=== PATIENT | female | born 1960 | race Caucasian/White ===

== ENCOUNTER → 2017-10-22 10:49 | Outpatient (CLI) | payer OTHER, SELFPAY ==
[2017-10-22 11:51] LABS: Add Manual Diff / Slide Review NO; Basophils Percent Auto 0.8 % (0-2); Eosinophils Percent Auto 0.6 % (2-4); Hematocrit 43.4 % (36-46); Hemoglobin 14.9 g/dL (12.0-16.0); Lymphocytes Percent Auto 24.1 % (25-40); Mean Corpuscular HGB Conc 34.2 % (30-36); Mean Corpuscular Hemoglobin 32.4 PG (26-34); Mean Corpuscular Volume 94.6 fL (80-100); Monocytes Percent Auto 7.2 % (3-14); Neutrophils Absolute Auto 3300 /uL (3000-5900); Neutrophils Percent Auto 67.3 % (50-75); Platelet Count 246 X10^3/uL (150-400); Red Blood Cell Count 4.59 X10^6/uL (4.0-5.2); Red Cell Distribution Width 13.2 % (11.6-14.8); White Blood Cell Count 4.9 X10^3/uL (4.5-11.0)
[2017-10-22 12:00] LABS: Hemoglobin A1C% w Est Avg Glu 5.2 % (4.0-6.0)
[2017-10-22 12:14] LABS: Blood Urea Nitrogen 9 mg/dL (7-17); Calcium 9.2 mg/dL (8.4-10.2); Carbon Dioxide 31 mmol/L (22-32); Chloride 100 mmol/L (98-107); Estimated Glomerular Filt Rate > 60.0 mL/min (>60); Glucose 102 mg/dL (70-100); HEMOLYSIS 83 (0-50); Sodium 138 mmol/L (137-145)
[2017-10-22 12:16] LABS: Potassium 5.2 mmol/L (3.4-5.1)
[2017-10-22 12:49] LABS: TSH w/ Reflex to FT4 0.65 uIU/mL (0.47-4.68)
[2017-10-23 10:12] LABS: Free T3, Triiodothyronine Free 3.22 pg/mL (2.77-5.27)
[2017-10-23 10:26] LABS: TSH w/ Reflex to FT4 0.69 uIU/mL (0.47-4.68)
== END ==
PROVIDERS: PCP Family Medicine; Visit Provider Family Medicine
DX: I10 Essential (primary) hypertension (principal); R68.89 Other general symptoms and signs; R63.4 Abnormal weight loss
CPT/HCPCS: 36415; 80048; 83036; 84443; 84481; 85025

== ENCOUNTER → 2017-11-23 11:28 | Outpatient (CLI) | payer OTHER, SELFPAY ==
[2017-11-23 12:52] LABS: BUN Creatinine Ratio 16.7 (6-22); Blood Urea Nitrogen 10 mg/dL (7-17); Carbon Dioxide 34 mmol/L (22-32); Chloride 102 mmol/L (98-107); Estimated Glomerular Filt Rate > 60.0 mL/min (>60); Glucose 92 mg/dL (70-100); HEMOLYSIS < 15 (0-50); Potassium 3.5 mmol/L (3.4-5.1); Sodium 144 mmol/L (137-145)
== END ==
PROVIDERS: PCP Family Medicine; Visit Provider Family Medicine
DX: E87.5 Hyperkalemia (principal)
CPT/HCPCS: 36415; 80048

== ENCOUNTER → 2018-02-15 14:04 | Outpatient (CLI) | payer OTHER, SELFPAY | PROVIDERS: PCP Family Medicine; Visit Provider Family Medicine | DX: R31.9 Hematuria, unspecified (principal) | CPT/HCPCS: 87077; 87086 ==

== ENCOUNTER → 2018-02-19 08:19 | Outpatient (CLI) | payer OTHER, SELFPAY ==
--- NOTE | 2018-02-19 09:05 | DI.CT.S_ITS ---
PROCEDURE: CT ABDOMEN PELVIS W CON INDICATIONS: UNEXPLAINED WIEGHT LOSS AND ABD DISCOMFORT TECHNIQUE: After the administration of intravenous contrast, 5 mm thick sections acquired from the diaphragm to the symphysis. 5 mm coronal and sagittal reformats were acquired. For radiation dose reduction, the following was used: automated exposure control, adjustment of mA and/or kV according to patient size. COMPARISON: None. FINDINGS: Contrast Extravasation: Please note that the patient experienced a small contrast extravasation at her injection site in the right antecubital fossa extending toward the right forearm. Intravenous contrast was adequately visualized on the CT of the abdomen and pelvis, suggesting that the volume of extravasated contrast was small in volume. Patient was subsequently evaluated by Dr. Khan in person immediately after the CT exam was completed. The patient denied any right upper extremity pain, and specifically denied any pain in the region of the suspected extravasation. On physical exam, the area of extravasation within the proximal right forearm felt minimally firm to touch with no abnormal coolness or warmth in the region. A strong right radial pulse with heart rate near 70 beats per minute was identified. 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 The patient was subsequently observed for approximately one hour and did not develop any new symptoms in that time. The patient was allowed to leave and was instructed to proceed to the nearest emergency department should she developed any new symptoms or pain in the right upper extremity. Dr. Khan contacted the patient by telephone at approximately 3:00 PM on 02/19/18 to check on the patient, and the patient stated that she continues to have no pain in the right upper extremity and no motor, nerve, or sensory symptoms in the right upper extremity. Patient was again reminded to proceed to the nearest emergency department should she develop new right upper extremity pain or new symptomatology. Image quality: Excellent. ABDOMEN: Lung bases: Lung bases are clear. Heart size is normal. Solid organs: There is a 2.0 cm simple hepatic cyst in the left hepatic lobe. Liver is otherwise normal in size and enhancement. Gallbladder is unremarkable. Biliary system is non dilated. Pancreas enhances normally. Spleen is normal in size and enhancement. No adrenal nodules. There are multiple subcentimeter hypointense foci within the kidneys bilaterally which are too small to fully characterize on this exam but likely represent renal cysts. There is a 1.5 cm exophytic simple renal cyst arising from the anterior left kidney with attenuation characteristics consistent with simple fluid (Hounsfield units measure at 8 HU). Kidneys demonstrate otherwise normal size and enhancement, without hydronephrosis. Peritoneum and bowel: Bowel loops demonstrate normal wall thickness and caliber. No free fluid or air. Normal appendix. Nodes and vessels: No retroperitoneal or mesenteric adenopathy by size criteria. Aorta and inferior vena cava are normal in size. Miscellaneous: No ventral hernias. PELVIS: Genitourinary: Bladder wall thickness is normal. Miscellaneous: No inguinal hernias or adenopathy. Uterus is present. There is prominence of the bilateral pelvic vasculature surrounding the uterus. No abnormal adnexal masses are identified. Bones: No suspicious bony lesions. No vertebral body compression fractures. 2 subcentimeter sclerotic foci within the right iliac wing and sacrum are most consistent with bone islands/anastomoses. There are bilateral L5 pars defects resulting in 3 mm of anterolisthesis of L5 on S1 as well as degenerative disc disease at L5-S1. IMPRESSION: #1. Prominence of the pelvic vasculature bilaterally, which can be seen with pelvic congestion syndrome. Clinical correlation suggested. #2. Bilateral L5 pars defects resulting in 3 mm of anterolisthesis of L5 on S1. #3. Patient experienced a small contrast extravasation at the intravenous contrast injection site in the right antecubital fossa extending toward the right forearm as described above. Patient denied any adverse symptoms in the right upper extremity, specifically denying any pain and denying any motor, nerve, or sensory symptoms. After close observation for approximately one hour, the patient was allowed to leave and was instructed to proceed to the nearest emergency department for evaluation should she develop any pain or new symptoms in the right upper extremity. Dictated by: Lopez Khan M.D. on 02/19/2018 at 15:11 Approved by: Lopez Khan M.D. on 02/19/2018 at 15:45
== END ==
PROVIDERS: PCP Family Medicine; Visit Provider Family Medicine
DX: R10.9 Unspecified abdominal pain (principal); R63.4 Abnormal weight loss; N28.1 Cyst of kidney, acquired; M43.17 Spondylolisthesis, lumbosacral region; M51.37 Other intervertebral disc degeneration, lumbosacral region
CPT/HCPCS: 74177; Q9967

== ENCOUNTER → 2018-03-10 11:18 | Outpatient (CLI) | payer OTHER, SELFPAY ==
[2018-03-10 13:01] LABS: Free T3, Triiodothyronine Free 3.07 pg/mL (2.77-5.27); Free T4, Direct Thyroxine 0.93 ng/dL (0.78-2.19)
[2018-03-10 13:13] LABS: Cancer Antigen 125 < 6 U/mL (0-35); Carcinoembryonic Antigen 0.6 ng/mL (0.1-3.0)
[2018-03-10 13:15] LABS: Thyroid Stimulating Hormone 1.36 uIU/mL (0.47-4.68)
[2018-03-12 15:13] LABS: Cancer (Carbohydrate) Ag 19-9 10 U/mL (< 34); Triiodothyronine T3 Total 127 ng/dL (76-181)
[2018-03-13 14:01] LABS: Thyroid Peroxidase Antibodies 1 IU/mL (< 9)
[2018-03-14 15:49] LABS: Triiodothyronine T3 Reverse 17 ng/dL (8-25)
== END ==
PROVIDERS: PCP Family Medicine; Visit Provider Family Medicine
DX: L65.9 Nonscarring hair loss, unspecified (principal); R63.4 Abnormal weight loss; R68.89 Other general symptoms and signs
CPT/HCPCS: 36415; 82378; 84439; 84443; 84480; 84481; 84482; 86301; 86304; 86376

== ENCOUNTER → 2018-04-30 14:31 | Outpatient (CLI) | payer OTHER, SELFPAY ==
[2018-04-30 15:14] LABS: Carbon Dioxide 24 mmol/L (22-32); Chloride 98 mmol/L (98-107); HEMOLYSIS 20 (0-50); Potassium 4.4 mmol/L (3.4-5.1); Sodium 134 mmol/L (137-145)
[2018-04-30 19:25] LABS: Rheumatoid Factor 17.9 IU/mL (<12.0)
== END ==
PROVIDERS: PCP Family Medicine; Visit Provider Family Medicine
DX: R89.9 Unspecified abnormal finding in specimens from other organs, systems and tissues (principal)
CPT/HCPCS: 36415; 80051; 86430

== ENCOUNTER → 2018-05-05 11:19 | Outpatient (CLI) | payer OTHER, SELFPAY ==
[2018-05-05 12:42] LABS: Creatine Kinase 38 U/L (30-135)
[2018-05-05 12:45] LABS: Rheumatoid Factor 15.9 IU/mL (<12.0)
[2018-05-07 10:31] LABS: CCP Antibody (IgG) < 16 Units (< 20)
== END ==
PROVIDERS: PCP Family Medicine; Visit Provider Family Medicine
DX: L65.9 Nonscarring hair loss, unspecified (principal); R10.9 Unspecified abdominal pain; R31.9 Hematuria, unspecified; R63.4 Abnormal weight loss; R68.89 Other general symptoms and signs; M25.50 Pain in unspecified joint
CPT/HCPCS: 36415; 82550; 83516; 86038; 86430

== ENCOUNTER 2018-06-03 08:29 | Day surgery (SDC) | payer OTHER, SELFPAY ==
[2018-06-03] VITALS (14 sets, daily range): BP systolic 84–125; BP diastolic 50–77; PULSE 60–90; RESP 10–20; TEMP 36–37.2; O2SAT 95–100; BMI 19.7
--- NOTE | 2018-06-03 | PATH_ITS ---
[facility] Accession Number: [id number] . 01 Material submitted: . ASCENDING COLON POLYP . 02 Diagnosis: Ascending Colon, Polyp: Tubular adenoma. MRV/06/04/2018 . 02 Electronically signed: . Epifanio Lay MD, PhD, Pathologist NPI- [id number] . 01 Gross description: . ASCENDING COLON POLYP: Received in formalin is 1 feliciano mucoid fragments measuring 0.5 x 0.2 x 0.2 cm. Entirely submitted in 1 cassette. /[facility] /[facility] . 02 Pathologist provided ICD-10: D12.2 . 02 CPT . 606495 Performed at: [address] [facility] [address], [place], [place] [id number] MD Mason Iverson MD Phone: [phone] Performed at: 02 [facility] [address] [place], [place] [id number] MD Anne Mendez MD Phone: [phone]
[2018-06-03] MEDS: SODIUM CHLORIDE 0.9% 1,000 ML 200 ML IV ×3 (09:12→12:24)
[2018-06-03] MEDS: ONDANSETRON 4 MG/2 ML INJ IV (10:37)
[2018-06-03] MEDS: fentaNYL 250 MCG/5 ML INJ IV (10:53)
[2018-06-03] MEDS: MIDAZOLAM 5 MG/5 ML VIAL 6 MG IV (10:54)
--- NOTE | 2018-06-03 11:01 | PM.HP.1 ---
History of Present Illness Date Patient Seen: 06/03/18 Time Patient Seen: 11:01 Chief complaint: [id number] Narrative: Very pleasant 57 year old lady who is here for her 1st screening colonoscopy. She denies any problems or symptoms related to the function of her GI tract. She does add that she has been under a lot of stress recently and has lost about 50 lb in the last 18 months. Now she does not seem to be able to put the weight back on. Patient History Medical History Hypertension (Chronic 09/19/13) Hyperlipidemia (Chronic 12/16/13) Seasonal allergic rhinitis (Chronic 09/19/13) Alopecia (Chronic 09/19/13) Hayfever (Chronic) Hypertension (Chronic) Lichen planus (Chronic) Migraines (Chronic) History of gestational trophoblastic disease (Resolved) Ovarian cyst (Resolved) Surgical History Status post dilation and curettage (Resolved) Status post ovarian cystectomy (Resolved 1985) Family History Daughter Age: 25 PCO (polycystic ovaries) Son Age: 30 Asperger's disorder Alcoholism /alcohol abuse Father Diabetes mellitus Heart disease Hypertension Stroke [place] (myocardial infarction) Daughter No problems noted. Mother Scleroderma Social History household members: spouse Smoking Status: Former smoker (quit 30 yrs ago) Family & Social History Family History Daughter Age: 25 PCO (polycystic ovaries) Son Age: 30 Asperger's disorder Alcoholism /alcohol abuse Father Diabetes mellitus Heart disease Hypertension Stroke [place] (myocardial infarction) Daughter No problems noted. Mother Scleroderma Social History: household members spouse Tobacco & Substance use: Smoking Status Former smoker Meds Home Medications Medication Instructions Recorded Confirmed Type amlodipine 5 mg tablet 5 mg PO QDAY #90 tab 11/18/17 06/03/18 Rx estradiol 1 mg tablet 1 mg PO Q DAY #90 tab 11/18/17 06/03/18 Rx norethindrone (contraceptive) 0.35 0.35 mg PO QDAY #84 tab 11/19/17 06/03/18 Rx mg tablet spironolactone 100 mg tablet 200 mg PO QDAY #180 tab 04/02/18 06/03/18 Rx escitalopram 5 mg tablet 10 mg PO DAILY #60 tab 04/30/18 06/03/18 Rx Allergies Allergy/AdvReac Type Severity Reaction Status Date / Time meperidine AdvReac Mild N/V Verified 06/03/18 08:54 Review of Systems Review of Systems All systems reviewed & are unremarkable except as noted in HPI and below Exam Vital Signs (past 8 hours): - 06/03/18 09:02 Temperature 98.0 F Pulse Rate 75 Respiratory Rate 15 Blood Pressure 125/77 Pulse Oximetry 100 Oxygen Delivery Method Room Air Narrative Exam Narrative: Very thin pleasant lady in no distress HEENT: Normocephalic and atraumatic, pupils equal round reactive to light accommodation with anicteric sclera Lungs: Clear bilaterally Heart: Regular rate and rhythm Abdomen: Soft, nontender, active bowel sounds Extremities: Warm and well perfused Assessment & Plan Assessment & Plan narrative: Very pleasant 57-year-old lady here for her 1st screening colonoscopy. We discussed the risks and benefits of the procedure the patient has expressed a desire to complete it today.
--- NOTE | 2018-06-03 11:16 | P.OP_ITS ---
Operative Date/Time/Diagnoses Date of procedure: 06/03/18 Time of procedure: 11:14 Pre-op diagnosis: Screening Post-op diagnosis: same Procedure & Clinicians Procedure: Colonoscopy to the cecum with 1 polypectomy Same procedure as scheduled: Yes Indications: No prior colonoscopy Surgeon: Kylee Jordan Operative Notes Findings: 1. Excellent prep 2. A single diminutive polyp or mucosal irregularity of approximately 3 mm in the mid ascending colon. Removed with cold forceps and retained for pathology 3. No AV malformations 4. Right-sided diverticulosis is appreciated with large and small pockets in the mid ascending colon. 5. No significant left-sided diverticulosis is appreciated 6. Grade 1 internal hemorrhoids Closure Type: not applicable Specimen(s): other (A single polyp from the mid ascending colon removed with cold forceps) Estimated Blood Loss (mL): 1 Procedure in detail: After obtaining informed consent, the patient was brought to the GI suite and placed in the left lateral decubitus position on the examination table. After placement of appropriate monitors, the patient was given incremental doses of Versed and Fentanyl until an appropriate level of sedation was achieved. A time out was held per SCOAP protocol. A digital rectal examination was performed and did not reveal any masses or o bstructing lesions. The colonoscope was gently passed into the patient's anus and the entire colon navigated to the level of the cecum with minimal difficulty. Once in the cecum, the scope was withdrawn being sure to go before and beyond all mucosal folds and prominences and get an excellent examination. The findings are noted above. At the level of the rectal vault, the scope was retroflexed and the internal anal canal was examined. The scope was straightened and air aspirated from the colon. The instrument was removed from the patient's body and the procedure was concluded. The patient was allowed to awaken from sedation without difficulty and taken to the post-anesthesia care unit in good condition. Total sedation time was 26 min Total withdrawal time was 13 min Complications: none Condition: stable Disposition: PACU Plan for aftercare: 1. Discharge to home 2. Plan for next colonoscopy in 5-10 years depending upon pathology 3. We will contact you with pathology results and any further recommendations.
--- NOTE | 2018-06-03 11:41 | SUR.PHASEI ---
slow to wake up, bp low, treated with ivf, no s/s of hypotension.
--- NOTE | 2018-06-03 14:18 | SUR.PHASEII ---
[address] perez re persistant low BP post procedure range 80-90/50-60. pt alet oriented no complaints of dizziness and has had 2 liters normal saline. pt asking to go home. dr perez gave ok to dc home
== END 2018-06-03 13:20 | disposition home or self-care (01) ==
PROVIDERS: PCP Family Medicine; Visit Provider Surgery
PROC: 0DJD8ZZ Inspection of Lower Intestinal Tract, Via Natural or Artificial Opening Endoscopic (ICD-10-PCS; CPT 45378; principal; 2018-06-03 10:45)
DX: Z12.11 Encounter for screening for malignant neoplasm of colon (principal); K57.30 Diverticulosis of large intestine without perforation or abscess without bleeding; K64.0 First degree hemorrhoids; D12.2 Benign neoplasm of ascending colon; I10 Essential (primary) hypertension; E78.5 Hyperlipidemia, unspecified; Z87.891 Personal history of nicotine dependence
CPT/HCPCS: 45380; 99152; 99153; J2250; J2405; J3010

== ENCOUNTER 2019-04-15 07:45 | Day surgery (SDC) | payer OTHER, SELFPAY ==
[2019-04-15] VITALS (12 sets, daily range): BP systolic 106–130; BP diastolic 66–80; PULSE 62–88; RESP 11–20; TEMP 36.6–36.9; O2SAT 96–99; BMI 20.7
--- NOTE | 2019-04-15 | PATH_ITS ---
[facility] Accession Number: [id number] . 01 Material submitted: . endometrium - ENDOMETRIAL CURETTINGS . 02 Diagnosis: Endometrial Curettings: Portions of weakly proliferative endometrium with features of breakdown and a suggestion of shedding; negative for glandular hyperplasia, cytologic atypia or malignancy. Some endometrial tissue fragments demonstrate dense plasma cells, suggestive of chronic endometritis, in the appropriate clinical setting. Refractile foreign body material associated with amorphous calcifications (non-psammomatous calcifications), nonspecific. MRV 04/18/2019 1604 Local . 02 Electronically signed: . Cherrie Hastings MD, Pathologist NPI- [id number] . 01 Gross description: . ENDOMETRIAL CURETTINGS: Received in formalin are minute fragments of mucoid and hemorrhagic material measuring 0.4 x 0.4 x 0.2 cm in aggregate. Submitted in toto in 1 cassette. /[facility] 04/15/20192047 Local . 02 Pathologist provided ICD-10: N95.0 . 02 CPT . 219610 Performed at: 01 [facility] [address], [place], [place] [id number] MD Mason Iverson MD Phone: [phone] Performed at: 02 [facility] [address] [place], [place] [id number] MD Anne Mendez MD Phone: [phone]
[2019-04-15] MEDS: LACTATED RINGERS 1,000 ML 42 ML IV (08:21)
--- NOTE | 2019-04-15 09:30 | PM.PREOP ---
Pre-operative Note Interval Note History & Physical reviewed/Exam performed by Physician: Yes Changes to H&P: No
--- NOTE | 2019-04-15 10:07 | SUR.OPER ---
Lithotomy on padded OR bed, head on pillow, arms secured on padded arm boards at <90 degrees abduction. Legs secured in padded yellow fins stirrups.
--- NOTE | 2019-04-15 10:28 | PM.OP.1 ---
Operative Date/Time/Diagnoses Date of procedure: 04/15/19 Time of procedure: 10:00 Pre-op diagnosis: Persistent postmenopausal bleeding Post-op diagnosis: same Procedure & Clinicians Procedure: Diagnostic hysteroscopy, dilation and curettage Same procedure as scheduled: Yes Indications: Persistent postmenopausal bleeding Surgeon: Palmira Loo Licensed Nuclear Operator: Jerzy Tanner Anesthesia Type: Sedation Operative Notes Findings: Atrophic endometrial lining, no sign of intracavitary fibroid or endometrial polyp. No lesions of endometrial lining. Multiple nabothian cyst on cervix, otherwise normal vulva and vagina. Specimen(s): other (Endometrial curettings) Estimated Blood Loss (mL): 0 Procedure in detail: After proper consents were obtained, the patient was taken to the operating room where IV sedation was obtained. The patient was placed in the dorsal lithotomy position and prepped and draped in the usual sterile fashion. Straight catheter was performed and removed. Speculum was inserted into the vagina, and the anterior lip of the cervix grasped with a tenaculum. The cervix was gently dilated to 7 mm with serial Hegar dilators, the speculum removed, and the diagnostic hysteroscope easily introduced through the cervix into the uterine cavity. The cavity was distended with sorbitol, and the above findings were visualized. Endometrial cavity was otherwise normal in appearance, with homogeneous, atrophic appearing lining. The hysteroscope was removed, and a dilation and curettage was performed. The tenaculum was removed from anterior lip of the cervix, the speculum reinserted, and pressure applied with a sponge stick to the tenaculum sites until good hemostasis was assured. The speculum was removed from the vagina, and the patient taken to the PACU in stable condition. IVF: 700ccs NS Deficit: 200ccs sorbitol Complications: none Post-operative Condition: stable Disposition: PACU Plan for aftercare: Nothing in the vagina for 2 weeks. We discussed expected bleeding and postoperative precautions with the patient and her partner prior to the procedure. Follow-up in clinic in 1-2 weeks.
--- NOTE | 2019-04-15 11:22 | SUR.PHASEI ---
Patient c/o being cold, so additional warm blankets given. Patient states that she is always cold. Patient c/o pain 09/22 but denies wanting pain medication at this time. Patient states she does not like to take pain medication.
--- NOTE | 2019-04-15 13:24 | SUR.PHASEII ---
1140 Dr. Loo called, requested Toradol and Tylenol order. Offered Toradol to patient, patient declined, requesting to discharge. Pad CDI.
== END 2019-04-15 12:02 | disposition home or self-care (01) ==
PROVIDERS: PCP Family Medicine; Visit Provider Obstetrics & Gynecology
PROC: 0UDB8ZZ Extraction of Endometrium, Via Natural or Artificial Opening Endoscopic (ICD-10-PCS; CPT 58558; principal; 2019-04-15 09:15)
DX: N95.0 Postmenopausal bleeding (principal)
CPT/HCPCS: 58558; J1100; J2405; J2704; J3010

== ENCOUNTER → 2019-11-01 08:58 | Outpatient (CLI) | payer OTHER, SELFPAY ==
[2019-11-01 10:47] LABS: Alanine Aminotransferase 10 IU/L (<35); Albumin 4.1 g/dL (3.5-5.0); Albumin Globulin Ratio 1.4 (1.0-2.8); Alkaline Phosphatase 40 U/L (38-126); Aspartate Aminotransferase 26 IU/L (14-36); BUN Creatinine Ratio 16.2 (6-22); Bilirubin Total 0.6 mg/dL (0.2-1.3); Blood Urea Nitrogen 11 mg/dL (7-17); Calcium 9.6 mg/dL (8.4-10.2); Carbon Dioxide 33 mmol/L (22-32); Chloride 99 mmol/L (98-107); Cholesterol 213 mg/dL (140-199); Estimated Glomerular Filt Rate > 60.0 mL/min (>60); Globulin 2.9 g/dL (1.7-4.1); Glucose 96 mg/dL (70-100); HDL Cholesterol 65 mg/dL (40-60); HEMOLYSIS < 15 (0-50); LDL Cholesterol Calculated 132 mg/dL (<100); Potassium 4.6 mmol/L (3.4-5.1); Sodium 135 mmol/L (137-145); Triglycerides 81 mg/dL (35-150)
[2019-11-01 11:11] LABS: Creatinine Urine Random 215.7 mg/dL
[2019-11-01 11:15] LABS: Microalbumi Creatinin Ratio Ur 4.6 ug/mg CR (<30)
== END ==
PROVIDERS: PCP Family Medicine; Referring Provider Family Medicine; Visit Provider Family Medicine
DX: E78.5 Hyperlipidemia, unspecified (principal); I10 Essential (primary) hypertension
CPT/HCPCS: 36415; 80053; 80061; 82043; 82570

== ENCOUNTER → 2020-05-04 09:59 | Outpatient (CLI) | payer OTHER, SELFPAY ==
--- NOTE | 2020-05-04 10:02 | DI.MG.S_ITS ---
BILATERAL DIGITAL SCREENING MAMMOGRAM 3D/2D WITH CAD: 05/04/2020 CLINICAL: Routine screening. Comparison is made to exams dated: 09/18/2016 mammogram, 09/05/2016 mammogram, and 01/06/2012 mammogram - [facility]. There are scattered fibroglandular elements in both breasts. Current study was also evaluated with a Computer Aided Detection (CAD) system. No significant masses, calcifications, or other findings are seen in either breast. There has been no significant interval change. IMPRESSION: NEGATIVE There is no mammographic evidence of malignancy. A 1 year screening mammogram is recommended. This exam was interpreted at Station ID: [id number]. NOTE: For mammograms, a report in lay terms will be sent to the patient. Approximately 15% of breast malignancies will not be visualized mammographically. In the management of a palpable breast mass, a negative mammogram must not discourage biopsy of a clinically suspicious lesion. Electronically Signed By: Ez Jansen acr/natalie:05/04/2020 14:13:34 letter sent: Normal Exam ACR BI-RADS Category 1: Negative 3341F
== END ==
PROVIDERS: PCP Family Medicine; Referring Provider Family Medicine; Visit Provider Family Medicine
DX: Z12.31 Encounter for screening mammogram for malignant neoplasm of breast (principal)
CPT/HCPCS: 77063; 77067

== ENCOUNTER → 2020-06-20 09:58 | Outpatient (CLI) | payer OTHER, SELFPAY ==
[2020-06-20] MEDS: COVID-19 VACC #1, MRNA(MOD) 100 MCG/0.5 ML VIAL IM (10:08)
== END ==
PROVIDERS: PCP Family Medicine; Visit Provider Internal Medicine
DX: Z23 Encounter for immunization (principal)
CPT/HCPCS: 0011A; 91301

== ENCOUNTER → 2020-07-18 10:01 | Outpatient (CLI) | payer OTHER, SELFPAY ==
[2020-07-18] MEDS: COVID-19 VACC #2, MRNA(MOD) 100 MCG/0.5 ML VIAL IM (10:14)
== END ==
PROVIDERS: PCP Family Medicine; Visit Provider Internal Medicine
DX: Z23 Encounter for immunization (principal)
CPT/HCPCS: 0012A; 91301

== ENCOUNTER → 2021-01-09 08:50 | Outpatient (CLI) | payer OTHER, SELFPAY ==
[2021-01-09 10:24] LABS: Alanine Aminotransferase 14 IU/L (<35); Albumin 4.3 g/dL (3.5-5.0); Albumin Globulin Ratio 1.3 (1.0-2.8); Alkaline Phosphatase 41 U/L (38-126); Aspartate Aminotransferase 26 IU/L (14-36); BUN Creatinine Ratio 15.4 (6-22); Bilirubin Total 0.7 mg/dL (0.2-1.3); Blood Urea Nitrogen 12 mg/dL (7-17); Calcium 9.7 mg/dL (8.4-10.2); Carbon Dioxide 34 mmol/L (22-32); Chloride 98 mmol/L (98-107); Cholesterol 249 mg/dL (140-199); Estimated Glomerular Filt Rate > 60.0 mL/min (>60); Globulin 3.3 g/dL (1.7-4.1); Glucose 103 mg/dL (80-110); HDL Cholesterol 54 mg/dL (40-60); HEMOLYSIS < 15 (0-50); LDL Cholesterol Calculated 177 mg/dL (<100); Potassium 4.6 mmol/L (3.4-5.1); Sodium 136 mmol/L (137-145); Total Protein 7.6 g/dL (6.3-8.2); Triglycerides 89 mg/dL (35-150)
[2021-01-09 10:33] LABS: Creatinine Urine Random 243.4 mg/dL
[2021-01-09 10:39] LABS: Microalbumi Creatinin Ratio Ur 5.7 ug/mg CR (<30); Microalbumin Urine Random 1.4 mg/dL (0-1.6)
== END ==
PROVIDERS: PCP Family Medicine; Referring Provider Family Medicine; Visit Provider Family Medicine
DX: E78.5 Hyperlipidemia, unspecified (principal); I10 Essential (primary) hypertension
CPT/HCPCS: 36415; 80053; 80061; 82043; 82570

== ENCOUNTER → 2023-03-17 09:41 | Outpatient (CLI) | payer OTHER, SELFPAY ==
--- NOTE | 2023-03-17 09:45 | DI.MG.S_ITS ---
BILATERAL DIGITAL SCREENING MAMMOGRAM 3D/2D WITH CAD: 03/17/2023 CLINICAL: Routine screening. Comparison is made to exams dated: 05/04/2020 mammogram, 09/18/2016 mammogram, 09/05/2016 mammogram, and 01/06/2012 mammogram - [facility]. There are scattered areas of fibroglandular density in both breasts (category b / 25%-50% glandular tissue). Current study was also evaluated with a Computer Aided Detection (CAD) system. No significant masses, calcifications, or other findings are seen in either breast. There has been no significant interval change. IMPRESSION: NEGATIVE There is no mammographic evidence of malignancy. A 1 year screening mammogram is recommended. Based on the Tyrer Cuzick model (a risk assessment model) the patient's lifetime risk is 5.7% and her 10 year risk is 2.4%. According to the ACR, ACS, and NCCN guidelines, an annual breast MRI exam along with mammogram is recommended if the patient's lifetime risk is 20% or greater. This exam was interpreted at Station ID: [id number]. NOTE: For mammograms, a report in lay terms will be sent to the patient. Approximately 15% of breast malignancies will not be visualized mammographically. In the management of a palpable breast mass, a negative mammogram must not discourage biopsy of a clinically suspicious lesion. Electronically Signed By: Dixon enriquez/natalie:03/17/2023 12:54:46 letter sent: Normal Exam ACR BI-RADS Category 1: Negative 3341F
[2023-03-17 12:13] LABS: BUN Creatinine Ratio 14.3 (6-22); Blood Urea Nitrogen 9 mg/dL (7-17); Calcium 9.9 mg/dL (8.4-10.2); Carbon Dioxide 32 mmol/L (22-32); Chloride 96 mmol/L (98-107); Cholesterol 266 mg/dL (140-199); Estimated Glomerular Filt Rate > 60 mL/min (>60); Glucose 99 mg/dL (80-110); HDL Cholesterol 65 mg/dL (40-60); HEMOLYSIS < 15 (0-50); LDL Cholesterol Calculated 176 mg/dL (<100); Potassium 4.2 mmol/L (3.4-5.1); Sodium 135 mmol/L (137-145); Triglycerides 123 mg/dL (35-150)
[2023-03-17 12:16] LABS: High Sensitivity CRP - Cardiac 0.5 mg/L (1.0-3.0)
[2023-03-17 12:53] LABS: Free T3, Triiodothyronine Free 3.15 pg/mL (2.77-5.27); Free T4, Direct Thyroxine 1.02 ng/dL (0.78-2.19)
[2023-03-17 13:07] LABS: Thyroid Stimulating Hormone 1.23 uIU/mL (0.47-4.68)
[2023-03-17 15:12] LABS: Creatinine Urine Random 116.8 mg/dL
[2023-03-17 15:16] LABS: Microalbumi Creatinin Ratio Ur 5.1 ug/mg CR (<30); Microalbumin Urine Random 0.6 mg/dL (0-1.6)
== END ==
PROVIDERS: PCP Family Medicine; Referring Provider Family Medicine; Visit Provider Family Medicine
DX: Z12.31 Encounter for screening mammogram for malignant neoplasm of breast (principal); I10 Essential (primary) hypertension; E78.5 Hyperlipidemia, unspecified; R68.89 Other general symptoms and signs; F41.9 Anxiety disorder, unspecified
CPT/HCPCS: 36415; 77063; 77067; 80048; 80061; 82043; 82570; 84439; 84443; 84481; 86140

== ENCOUNTER → 2024-02-18 08:11 | Outpatient (CLI) | payer OTHER, SELFPAY ==
[2024-02-18 08:42] LABS: Hematocrit 42.8 % (36-46); Hemoglobin 14.2 g/dL (12.0-16.0); Mean Corpuscular HGB Conc 33.1 % (30-36); Mean Corpuscular Hemoglobin 31.9 PG (26-34); Mean Corpuscular Volume 96.4 fL (80-100); Platelet Count 295 X10^3/uL (150-400); Red Blood Cell Count 4.45 X10^6/uL (4.0-5.2); Red Cell Distribution Width 13.1 % (11.6-14.8); White Blood Cell Count 4.9 X10^3/uL (4.5-11.0)
[2024-02-18 09:03] LABS: Alanine Aminotransferase 18 IU/L (<35); Albumin 3.9 g/dL (3.5-5.0); Albumin Globulin Ratio 1.3 (1.0-2.8); Alkaline Phosphatase 43 U/L (38-126); Aspartate Aminotransferase 32 IU/L (14-36); Bilirubin Total 0.4 mg/dL (0.2-1.3); Blood Urea Nitrogen 12 mg/dL (7-17); Calcium 9.4 mg/dL (8.4-10.2); Carbon Dioxide 33 mmol/L (22-32); Chloride 98 mmol/L (98-107); Cholesterol 242 mg/dL (140-199); Estimated Glomerular Filt Rate > 60 mL/min (>60); Globulin 2.9 g/dL (1.7-4.1); Glucose 97 mg/dL (80-110); HDL Cholesterol 69 mg/dL (40-60); HEMOLYSIS < 15 (0-50); LDL Cholesterol Calculated 161 mg/dL (<100); Potassium 4.6 mmol/L (3.4-5.1); Sodium 134 mmol/L (137-145); Total Protein 6.8 g/dL (6.3-8.2); Triglycerides 59 mg/dL (35-150)
[2024-02-18 09:06] LABS: High Sensitivity CRP - Cardiac 0.8 mg/L (1.0-3.0)
[2024-02-18 09:32] LABS: TSH w/ Reflex to FT4 1.21 uIU/mL (0.47-4.68)
[2024-02-18 09:38] LABS: Ferritin 57 ng/mL (11-264)
== END ==
PROVIDERS: PCP Family Medicine; Referring Provider Family Medicine; Visit Provider Family Medicine
DX: E78.5 Hyperlipidemia, unspecified (principal); I10 Essential (primary) hypertension; L65.9 Nonscarring hair loss, unspecified
CPT/HCPCS: 36415; 80053; 80061; 82728; 84443; 85027; 86140

== ENCOUNTER 2024-05-26 06:45 | Day surgery (SDC) | payer OTHER, SELFPAY ==
[2024-05-26 07:07] VITALS: BP 122/74; PULSE 76; RESP 16; TEMP 36.2; O2SAT 98; BMI 21.7
[2024-05-26] MEDS: LACTATED RINGERS 1,000 ML 150 ML IV (07:18)
--- NOTE | 2024-05-26 07:42 | P.HP_ITS ---
History of Present Illness History of Present Illness Date Patient Seen: 05/26/24 Time Patient Seen: 07:42 Chief complaint: [facility] Narrative: Geneva Cabrera is a 63-year-old woman here for a colonoscopy. Her last 1 was in 2019 and 1 small tubular adenoma was removed. She has no first-degree relatives with colon cancer history. [facility] Medical History (Updated 05/26/24 @ 07:43 by Joni Davies MD) Skin lesion of scalp Benign joint hypermobility Diverticulosis Rheumatoid factor positive Tubular adenoma of colon Postmenopausal bleeding Weight loss Hayfever Migraines Ovarian cyst Hypertension Lichen planus History of gestational trophoblastic disease Hyperlipidemia (12/16/13) Seasonal allergic rhinitis (09/19/13) Alopecia (09/19/13) Hypertension (09/19/13) Surgical History History of colonoscopy with polypectomy Status post dilation and curettage Status post ovarian cystectomy (1985) Family History (Updated 11/18/19 @ 14:43 by Chel Wilson DO) Daughter Age: 31 PCO (polycystic ovaries) Son Age: 36 Asperger's disorder Alcoholism /alcohol abuse Father Diabetes mellitus Heart disease Hypertension Stroke [place] (myocardial infarction) Daughter No problems noted. Mother Scleroderma Unknown Cancer Sister Colon polyps Social History household members: spouse Smoking Status: Former smoker alcohol intake: current Meds Home Medications and Allergies Home Medications Medication Instructions Recorded Confirmed Type progesterone micronized 200 mg 200 mg PO BEDTIME #90 caps 02/15/24 03/25/24 Rx capsule amlodipine 5 mg tablet See Rx Instructions .Route 03/25/24 03/25/24 Rx .COMPLEX #90 tabs escitalopram oxalate 10 mg tablet 5 mg (1/2 x 10 mg) PO DAILY #45 03/25/24 03/25/24 Rx tabs estradiol 1 mg tablet 1 mg PO DAILY #90 tabs 03/25/24 03/25/24 Rx spironolactone 100 mg tablet 200 mg (2 x 100 mg) PO DAILY #180 03/25/24 03/25/24 Rx tabs estradiol 0.01% (0.1 mg/gram) 1 g vaginal 2XW #42.5 grams 05/11/24 Rx vaginal cream Allergies Allergy/AdvReac Type Severity Reaction Status Date / Time meperidine AdvReac Mild N/V Verified 05/26/24 07:04 Exam Vital Signs (past 8 hours): - 05/26/24 07:07 Temperature 97.1 F L Pulse Rate 76 Respiratory Rate 16 Blood Pressure 122/74 Pulse Oximetry 98 Oxygen Delivery Method Room Air Oxygen Delivery Method Room Air Const General: healthy appearing Assessment & Plan Assessment and plan (1) History of colon polyps: Status: Acute Plan colonoscopy Time-Based Coding :: [TOTAL MINUTES] spent with patient and on the chart (including review of chart, obtaining history, exam, reviewing outside data, placing orders, documenting exam and treatment plan, and counseling patient) on [DATE]. PROFEE Special Makeup Fx Artist Instructor Document charge(s): No
[2024-05-26 08:04] VITALS: BP 116/77; PULSE 95; RESP 16; TEMP 36.5; O2SAT 97
--- NOTE | 2024-05-26 08:08 | PM.OP.COLON ---
Operative Date/Time/Diagnoses Date of procedure: 05/26/24 Time of procedure: 08:08 Pre-op diagnosis: History of polyps Post-op diagnosis: same Procedure & Clinicians Study performed: Colonoscopy Same procedure as scheduled: Yes Surgeon: Joni Davies Procedure Notes Procedure in detail: Surgeon: Joni Davies MD Anesthesia: Angelica Guthrie CRNA Procedure: The patient was brought to the endoscopy suite, placed in left lateral decubitus position. The patient was connected to monitoring devices. A time-out was performed. Sedation was administered. Once the patient was adequately sedated, a digital rectal exam was performed and was normal. The scope was then inserted and advanced to the cecum where the appendiceal orifice was identified and photographed. The scope was then slowly withdrawn over greater than 6 minutes. The mucosa was thoroughly inspected. No abnormalities were identified. The scope was retroflexed in the rectum. The scope was straightened and removed. The patient was awakened and brought to recovery. Scope withdrawal time: 7 minutes Sedation time: 14 minutes EBL: 0 Findings: Normal colon Post-procedure Recommendations: Colonoscopy in 10 years Disposition: PACU
[2024-05-26 08:09] VITALS: BP 116/77; PULSE 92; RESP 19; O2SAT 98
[2024-05-26 08:14] VITALS: BP 118/78; PULSE 88; RESP 18; O2SAT 99
[2024-05-26 08:17] VITALS: BP 114/72; PULSE 93; RESP 15; TEMP 36.3; O2SAT 99
== END 2024-05-26 08:29 | disposition home or self-care (01) ==
PROVIDERS: PCP Family Medicine; Referring Provider Surgery; Visit Provider Surgery
PROC: 0DJD8ZZ Inspection of Lower Intestinal Tract, Via Natural or Artificial Opening Endoscopic (ICD-10-PCS; CPT 45378; principal; 2024-05-26 07:45)
DX: Z12.11 Encounter for screening for malignant neoplasm of colon (principal); Z86.0100 Personal history of colon polyps, unspecified; Z87.891 Personal history of nicotine dependence
CPT/HCPCS: 45378; J2405; J2704

== ENCOUNTER → 2024-07-19 08:13 | Outpatient (CLI) | payer OTHER, SELFPAY ==
[2024-07-19 08:45] LABS: D Dimer < 215 ng/ml (<500)
[2024-07-19 08:49] LABS: Alanine Aminotransferase 17 IU/L (<35); Albumin Globulin Ratio 1.5 (1.0-2.8); Alkaline Phosphatase 40 U/L (38-126); Aspartate Aminotransferase 30 IU/L (14-36); BUN Creatinine Ratio 16.9 (6-22); Bilirubin Total 0.5 mg/dL (0.2-1.3); Blood Urea Nitrogen 12 mg/dL (7-17); Calcium 9.5 mg/dL (8.4-10.2); Carbon Dioxide 33 mmol/L (22-32); Chloride 99 mmol/L (98-107); Estimated Glomerular Filt Rate > 60 mL/min (>60); Globulin 2.7 g/dL (1.7-4.1); Glucose 103 mg/dL (70-99); HEMOLYSIS < 15 (0-50); Potassium 4.5 mmol/L (3.4-5.1); Sodium 135 mmol/L (137-145); Total Protein 6.7 g/dL (6.3-8.2)
== END ==
PROVIDERS: PCP Family Medicine; Referring Provider Family Medicine; Visit Provider Family Medicine
DX: I10 Essential (primary) hypertension (principal); E78.5 Hyperlipidemia, unspecified; Z79.899 Other long term (current) drug therapy; Z79.890 Hormone replacement therapy
CPT/HCPCS: 36415; 80053; 85379